=== PATIENT | male | born 1955 | race Caucasian/White ===

== ENCOUNTER → 2017-03-05 | Outpatient (CLI) | payer BC ==
[~2017-03-05] MED LIST: LEVO125T5 PO; LISI1TAB7 PO
[2017-03-05 13:04] LABS: ASPARTATE AMINO TRANSFERASE 33 U/L (15-37); BLOOD UREA NITROGEN 12 mg/dL (7-18)
[2017-03-05 13:25] LABS: HIV 1&2 ANTIBODY SCREEN Nonreactive (Nonreactive); HIV-1 p24 ANTIGEN Nonreactive (Nonreactive)
[2017-03-06 09:18] LABS: HEPATITIS C VIRUS ANTIBODY Nonreactive (Nonreactive)
== END | disposition home or self-care (01) ==
LOC: STAR 12:10
PROVIDERS: ATTEND Orthopaedic Surgery Orthopaedic Surgery of the Spine
DX: Z01.811 Encounter for preprocedural respiratory examination (principal); M54.16 Radiculopathy, lumbar region; M48.06 Spinal stenosis, lumbar region; R79.9 Abnormal finding of blood chemistry, unspecified; R79.1 Abnormal coagulation profile
CPT/HCPCS: 36415; 71020; 80053; 80074; 81003; 85025; 85610; 85651; 85730; 86703; 87899; 93005; G0435

== ENCOUNTER 2017-03-11 07:02 | Inpatient (IN) | payer BC ==
[~2017-03-11] VITALS: Ht 180.3 cm; Wt 94.9 kg
[2017-03-11] MEDS ORDERED: LACTATED RINGERS 1,000 ML IV SCH (07:37)
[2017-03-11 07:39] VITALS: BP 130/83
[2017-03-11] MEDS ORDERED: ONDANSETRON 2MG/ML, 2ML IVPush PRN (11:30)
[2017-03-11] MEDS ORDERED: ACETAMINOPHEN 325 MG TABLET PO PRN (11:30)
[2017-03-11] MEDS ORDERED: FENTANYL PF 100 MCG/2ML IV PRN (11:30)
[2017-03-11] MEDS ORDERED: MEPERIDINE/PF 25MG/0.5ML IVPush PRN (11:30)
[2017-03-11] MEDS ORDERED: KETOROLAC 30 MG/1 ML IV PRN (11:30)
[2017-03-11] MEDS ORDERED: HYDROmorphone 1 MG/ML, 1ML IV PRN (11:30)
[2017-03-11] MEDS ORDERED: OXYcodone 5 MG/5 ML ORAL.SOL UDC PO PRN (11:30)
[2017-03-11] MEDS ORDERED: GLYCOPYRROLATE 0.2MG/1ML ONE ×3 (13:14→14:32)
[2017-03-11] MEDS ORDERED: GLYCOPYRROLATE 0.2MG/1ML IVPush ONE ×3 (13:30→15:00)
[2017-03-11] MEDS: METOCLOPRAMIDE 5 MG/ML, 2ML IV SCH ×2 (15:00→23:00)
[2017-03-11] MEDS ORDERED: OXYcodone IR 5MG TABLET PO PRN (15:00)
[2017-03-11] MEDS ORDERED: NALOXONE 0.4 MG/ML, 1ML IV PRN (15:30)
[2017-03-11] MEDS ORDERED: LABETALOL 5MG/ML, 20ML IV PRN (15:30)
[2017-03-11] MEDS ORDERED: PROMETHAZINE 25 MG/ML, 1ML IM PRN (15:30)
[2017-03-11] MEDS ORDERED: DIPHENHYDRAMINE 50 MG/ML, 1ML IM PRN (15:30)
[2017-03-11] MEDS ORDERED: MAGNESIUM HYDROXIDE 8%, 30ML UDC PO PRN (15:30)
[2017-03-11] MEDS ORDERED: BISACODYL 10 MG SUPP PR PRN (15:30)
[2017-03-11] MEDS ORDERED: DIAZEPAM 5 MG TABLET PO PRN (15:30)
[2017-03-11] MEDS ORDERED: HYDROmorphone 2 MG/ML, 1ML IM PRN (15:30)
[2017-03-11] MEDS ORDERED: DIPHENHYDRAMINE 50 MG/ML, 1ML IVPush PRN (15:30)
[2017-03-11] MEDS ORDERED: DIPHENHYDRAMINE 50 MG CAPSULE PO PRN (15:30)
[2017-03-11] MEDS ORDERED: DIAZEPAM 5 MG/ML, 2ML IV PRN (15:30)
[2017-03-11] MEDS ORDERED: ROCURONIUM 10 MG/ML ONE (15:49)
[2017-03-11] MEDS ORDERED: GENTAMICIN 80 MG/2 ML ONE (15:49)
[2017-03-11] MEDS ORDERED: DEXAMETHASONE 4 MG/ML, 5ML ONE (15:49)
[2017-03-11] MEDS ORDERED: CEFAZOLIN 1,000 MG ONE (15:49)
[2017-03-11] MEDS ORDERED: ONDANSETRON 2MG/ML, 2ML ONE (15:49)
[2017-03-11] MEDS ORDERED: KETOROLAC 30 MG/1 ML ONE (15:49)
[2017-03-11] MEDS ORDERED: PROPOFOL 10 MG/ML, 20ML ONE (15:49)
[2017-03-11] MEDS: LISINOPRIL 20 MG TABLET PO SCH (16:00)
[2017-03-11] MEDS: LEVOTHYROXINE 125 MCG TABLET PO SCH (16:00)
[2017-03-11] MEDS: HYDROCHLOROTHIAZIDE 25 MG TABLET PO SCH (16:00)
[2017-03-11] MEDS: ACETAMINOPHEN 500 MG TABLET PO SCH ×2 (17:06→23:08)
[2017-03-11] MEDS: D5%-0.9% NACL+KCL 20MEQ 1,000 ML IV SCH (17:07)
[2017-03-11] MEDS: CEFAZOLIN PMX 1GM/50ML 50 ML IVPB SCH (17:09)
[2017-03-11 20:01] VITALS: BP 146/82
[2017-03-12 00:22] VITALS: BP 109/62
[2017-03-12] MEDS: D5%-0.9% NACL+KCL 20MEQ 1,000 ML IV SCH ×2 (00:59→05:50)
[2017-03-12] MEDS: CEFAZOLIN PMX 1GM/50ML 50 ML IVPB SCH (00:59)
[2017-03-12 03:23] VITALS: BP 126/74
[2017-03-12] MEDS: LEVOTHYROXINE 125 MCG TABLET PO SCH (05:50)
[2017-03-12] MEDS: LISINOPRIL 20 MG TABLET PO SCH (08:25)
[2017-03-12] MEDS: HYDROCHLOROTHIAZIDE 25 MG TABLET PO SCH (08:25)
[2017-03-12] MEDS: ACETAMINOPHEN 500 MG TABLET PO SCH ×2 (08:28→14:31)
[2017-03-12 08:30] VITALS: BP 121/64
[2017-03-12] MEDS ORDERED: SENNA/DOCUSATE TABLET PO SCH (09:00)
[2017-03-12] MEDS ORDERED: ACET325T14 PO (14:11)
[2017-03-12] MEDS ORDERED: LEVO125T PO (14:11)
[2017-03-12] MEDS ORDERED: CELE200C PO (14:14)
[2017-03-12 14:43] VITALS: BP 128/77
[2017-03-12] MEDS ORDERED: ZOLPIDEM 5MG TABLET PO PRN (21:00)
== END 2017-03-12 14:53 | disposition home or self-care (01) | DRG 520 ==
LOC: OUT 07:02 → EDSTATUS 07:30 → 4NOR 14:46 → OUT 15:30
PROVIDERS: ADMIT Orthopaedic Surgery Orthopaedic Surgery of the Spine; ATTEND Orthopaedic Surgery Orthopaedic Surgery of the Spine
PROC: 0SB20ZZ Excision of Lumbar Vertebral Disc, Open Approach (ICD-10-PCS; 2017-03-11)
PROC: 01NB0ZZ Release Lumbar Nerve, Open Approach (ICD-10-PCS; principal; 2017-03-11 09:00)
DX: M48.06 Spinal stenosis, lumbar region (principal); I10 Essential (primary) hypertension; M47.27 Other spondylosis with radiculopathy, lumbosacral region; E03.9 Hypothyroidism, unspecified; M41.9 Scoliosis, unspecified; G47.33 Obstructive sleep apnea (adult) (pediatric); Z79.899 Other long term (current) drug therapy
CPT/HCPCS: 72100; J0690; J1100; J1885; J2405; J2704; J3490; C1751; J1580; J3480; J7120